=== PATIENT | female | born 1955 | race Caucasian/White ===

== ENCOUNTER → 2020-09-14 09:23 | Outpatient (CLI) | payer MEDICARE, OTHER, SELFPAY ==
--- NOTE | ~2020-09-14 | US_ITS ---
US renal BI 09/14/2020 09:42 Procedure: Realtime transabdominal ultrasound of the kidneys and bladder. Indication: Chronic kidney disease. Hypertension. Diabetes. Comparison: 11/21/2006 Findings: Renal echotexture is normal bilaterally without hydronephrosis, contour deforming mass or r enal calculus. The right kidney measures 9.9 cm and left kidney measures 11 cm. Bladder within juliette l limits. There is fatty infiltration of the liver. Impression: 1: Unremarkable renal ultrasound. No stones, masses or hydronephrosis. Reviewed, dictated and finalized at location A. L RESERVATIONIST Impression: 1: Unremarkable renal ultrasound. No stones, masses or hydronephrosis.
== END ==
PROVIDERS: PCP Family Medicine; Visit Provider Family Medicine
DX: N18.30 Chronic kidney disease, stage 3 unspecified (principal)
CPT/HCPCS: 76775

== ENCOUNTER 2020-09-25 11:26 | Outpatient (NON) | payer MEDICARE, BC, OTHER, SELFPAY ==
[2020-09-25 21:25] LABS: SARS-CoV-2 RNA PCR Positive
== END 2020-09-25 11:27 ==
PROVIDERS: PCP Family Medicine; Visit Provider Family Medicine
DX: U07.1 COVID-19 (principal)
CPT/HCPCS: C9803; U0003; U0005

== ENCOUNTER 2020-10-30 07:56 | Outpatient (CLI) | payer MEDICARE, BC, OTHER, SELFPAY ==
--- NOTE | ~2020-10-30 | MM_ITS ---
EXAMINATION: MM screening [facility] BI w dariana HISTORY: Screening mammogram TECHNIQUE: Craniocaudal and mediolateral oblique 3-D tomosynthesis images were obtained and synthetic 2-D images were generated. CAD analysis was submitted and interpreted. COMPARISON: 07/18/2017, 12/28/2008, 11/02/2007 BREAST PARENCHYMAL COMPOSITION: There are scattered areas of fibroglandular density. FINDINGS: There is no evidence of suspicious mass, calcification, or architectural distortion to sugg est malignancy in either breast. There has been no suspicious interval change. IMPRESSION: 1. No mammographic evidence of malignancy. 2. Recommend routine screening mammography in one year. BI-RADS Category 1: Negative Reviewed, dictated and finalized at location A. ER [employer]
--- NOTE | ~2020-10-30 | DEXA_ITS ---
Bone Density Report Name: Slime Blank Age: 65 Sex: Female Ethnicity: White Date of : 1955 Indication: osteopenia; Referring Provider: Rajat, [facility] Study: Bone densitometry was performed. Exam Date: October 30, 2020 Accession number: [id number] Bone Density: Region BMD T-score Z-score Classification AP Spine (L1-L4) 0.907 -1.3 0.6 Osteopenia Femoral Neck (Left) 0.741 -1.0 0.6 Normal Total Hip (Left) 0.980 0.3 1.6 Normal Total Hip Bilateral Avg 0.970 0.2 1.5 Normal Femoral Neck (Right) 0.779 -0.6 0.9 Normal Total Hip (Right) 0.958 0.1 1.4 Normal World Health Organization criteria for BMD impression classify patients as: Normal (T-score at or above -1.0), Osteopenia (T-score between -1.0 and -2.5), or Osteoporosis (T-score at or below -2.5). 10-year Fracture Risk(1): Major Osteoporotic Fracture 7.8% Hip Fracture 0.6% Reported Risk Factors: [place] (), Neck BMD=0.741, BMI=31.6 (1) FRAX(R) Version 3.08. Fracture probability calculated for an untreated patient. Fracture probability may be lower if the patient has received treatment. Previous Exams: Region Exam Age BMD T-score BMD Change BMD Change Date g/cm2 vs Baseline vs Previous AP Spine(L1-L4) 10/30/2020 65 0.907 -1.3 -0.061(-6.3%)# -0.013(-1.4%)# 10/23/2006 51 0.920 -1.2 -0.048(-5.0%)* -0.048(-5.0%)* 09/25/2004 48 0.968 -0.7 Total Hip(Left) 10/30/2020 65 0.980 0.3 0.025(2.7%)# -0.003(-0.3%) 07/18/2017 61 0.983 0.3 0.029(3.0%)# 0.020(2.1%)# 10/23/2006 51 0.963 0.2 0.009(0.9%) 0.009(0.9%) 09/25/2004 48 0.954 0.1 Total Hip(Right) 10/30/2020 65 0.958 0.1 -0.004(-0.4%)# -0.040(-4.0%)* 07/18/2017 61 0.998 0.5 0.036(3.7%)# 0.014(1.4%)# 10/23/2006 51 0.984 0.3 0.022(2.3%) 0.022(2.3%) 09/25/2004 48 0.962 0.2 *Denotes significance at 95% confidence level, LSC for AP Spine = 0.022 g/cm2, LSC for Total Hip = 0.027 g/cm2 Clinical Information Provided by Patient: Has used the following medications: Vitamin D Patient maximum height was 66 No regular weight bearing exercise Does not regularly consume dairy products Drinks caffeinated beverages Onset of menses at age 11 Number of children 1 Impression: The patient has low bone mass, based on the Total Spine T-score. The patient has an estimated ten-year risk of hip fracture of 0.6% and an estimated ten-year risk of major fr
== END 2020-10-30 07:57 | disposition home or self-care (01) ==
LOC: ANHIMG 08:01
PROVIDERS: PCP Family Medicine; Visit Provider Family Medicine
DX: Z12.31 Encounter for screening mammogram for malignant neoplasm of breast (principal); Z78.0 Asymptomatic menopausal state; M85.88 Other specified disorders of bone density and structure, other site
CPT/HCPCS: 77063; 77067; 77080

== ENCOUNTER → 2021-02-20 09:34 | Outpatient (CLI) | payer MEDICARE, BC, OTHER, SELFPAY ==
--- NOTE | ~2021-02-20 | XR_ITS ---
XR hand RT min 3V DATE: 02/20/2021 11:50 INDICATION: Bilateral hand pain TECHNIQUE: 3 views COMPARISON: None FINDINGS: There is polyarticular osteoarthritis, including first carpometacarpal, multiple metacarpop halangeal and interphalangeal joints, particularly distal interphalangeal joints of the second and mo st severely the third digits. No fracture or dislocation, periosteal reaction or bone destruction is detected. IMPRESSION: Polyarticular osteoarthritis Reviewed, dictated and finalized at location A.
--- NOTE | ~2021-02-20 | XR_ITS ---
XR hand LT min 3V DATE: 02/20/2021 11:49 INDICATION: Bilateral hand pain TECHNIQUE: 3 views COMPARISON: None FINDINGS: There is polyarticular osteoarthritis, including first carpometacarpal and multiple metacar pophalangeal joints and multiple interphalangeal joints, particularly the distal interphalangeal join ts, most pronounced at the second and third digits. No fracture, dislocation, periosteal reaction or bone destruction is detected. IMPRESSION: Polyarticular osteoarthritis Reviewed, dictated and finalized at location A.
--- NOTE | ~2021-02-20 | XR_ITS ---
XR lumbar spine min 4V DATE: 02/20/2021 11:49 INDICATION: Chronic low back pain TECHNIQUE: Standing AP, lateral, coned lateral lumbosacral and bilateral oblique views COMPARISON: None FINDINGS: There is diffuse osteopenia. No fracture or bone destruction, spondylolysis or spondylolisthesis. There is mild degenerative spurring of the lumbar vertebral bodies. Lumbar and lumbosacral interspace s are relatively well preserved. The sacroiliac joints are intact. Abdominal aortic and iliac arterial calcifications. IMPRESSION: Diffuse osteopenia Mild degenerative spurring Reviewed, dictated and finalized at location A.
--- NOTE | ~2021-02-20 | XR_ITS ---
XR hip BI 2V w AP pelvis DATE: 02/20/2021 11:49 INDICATION: Bilateral hip pain TECHNIQUE: AP pelvis. AP and lateral views of each hip COMPARISON: 09/15/2013 bilateral hips FINDINGS: Mild bilateral hip osteoarthritis. No fracture, dislocation, avascular necrosis or bone destruction of either hip is detected. No pelvic fracture or bone destruction. The pubic symphysis and sacroiliac joints are intact. IMPRESSION: Mild bilateral hip osteoarthritis Reviewed, dictated and finalized at location A.
--- NOTE | ~2021-02-20 | XR_ITS ---
XR knee RT 3V, XR knee LT 3V 02/20/2021 11:49 Indication: Bilateral knee pain Procedure: 3 views of each knee Comparison: Comparison to multiple prior studies sequentially, with oldest reviewed study dated 04/2014. Findings: There is mild bilateral patellofemoral compartment osteoarthritis. No fracture, subluxation or dislocation. No joint effusion. No foreign bodies. Impression: 1: Mild bilateral patellofemoral compartment osteoarthritis. Reviewed, dictated and finalized at location A. Impression: 1: Mild bilateral patellofemoral compartment osteoarthritis. Impression: 1: Mild bilateral patellofemoral compartment osteoarthritis.
== END ==
PROVIDERS: PCP Family Medicine; Visit Provider Family Medicine
DX: M18.0 Bilateral primary osteoarthritis of first carpometacarpal joints (principal); M19.042 Primary osteoarthritis, left hand; M19.041 Primary osteoarthritis, right hand; M16.0 Bilateral primary osteoarthritis of hip; M85.88 Other specified disorders of bone density and structure, other site
CPT/HCPCS: 72110; 73130; 73521; 73562

== ENCOUNTER → 2022-05-09 15:14 | Outpatient (CLI) | payer MEDICARE, BC, OTHER, SELFPAY ==
--- NOTE | ~2022-05-09 | XR_ITS ---
XR cervical spine 4-5V DATE: 05/09/2022 15:34 INDICATION: Neck pain TECHNIQUE: AP, open-mouth, lateral and swimmer views COMPARISON: None FINDINGS: There is straightening of the cervical spinal which may be due to muscle spasm. C1 and C2 are normally aligned and the odontoid process is intact. There is minimal anterolisthesis at C3-4 and C4-5. There is severe degenerative disc disease as well as anterior posterior spurring at C5-6. There is mild degenerative disease and mild anterior posterior spurring at C6-7. There is degenerative change at the cervical apophyseal and C5-6 uncovertebral joints. No fracture or dislocation or locked facet or prevertebral soft tissue swelling is detected. IMPRESSION: Straightening of the cervical spine, which may be due to muscle spasm Severe degenerative disc disease at C5-6, with uncovertebral joint spurring Mild to moderate degenerative disc disease at C6-7 Minimal anterolisthesis at C3-4, C4-5 Reviewed, dictated and finalized at location B. IMPRESSION: Straightening of the cervical spine, which may be due to muscle spa sm Severe degenerative disc disease at C5-6, with uncovertebral joint spurring Mild to moderate degenerative disc disease at C6-7 Minimal anterolisthesis at C3-4, C4-5
== END ==
PROVIDERS: PCP Family Medicine; Visit Provider Family Medicine
DX: M50.323 Other cervical disc degeneration at C6-C7 level (principal)
CPT/HCPCS: 72050

== ENCOUNTER 2022-10-16 11:28 | Emergency (ER) | payer MEDICARE, BC, OTHER, SELFPAY ==
[2022-10-16 11:39] VITALS: BP 130/75; PULSE 86; RESP 18; TEMP 36.2; O2SAT 99
--- NOTE | 2022-10-16 12:00 | ED.URI ---
HPI - URI/Sore Throat General Chief Complaint: Upper Respiratory Infection Stated Complaint: cold symptoms Time Seen by Provider: 10/16/22 12:00 Source: patient and RN notes reviewed Mode of arrival: ambulatory Limitations: no limitations History of Present Illness HPI Narrative: 67 y/o female with hx DM and CAD presented for c/o cough, sinus congestion and drainage intermittently for 3 weeks. Reports cough is productive of yellow sputum. States symptoms will improve for a short period time and then return. She denies shortness of breath, wheezing, nausea, vomiting or diarrhea or fevers or chills. She is taking multiple [id number] medications without significant relief. MD elicited complaint: cough Related Data Home Medications Medication Instructions Recorded Confirmed allopurinol 100 mg tablet 100 mg PO DAILY 10/11/19 10/16/22 aspirin 81 mg tablet,delayed 81 mg PO DAILY 10/11/19 10/16/22 release (Adult Low Dose Aspirin) cetirizine 10 mg capsule 10 mg PO DAILY 10/11/19 10/16/22 ezetimibe 10 mg tablet (Zetia) 10 mg PO DAILY 10/11/19 10/16/22 spironolactone 100 mg tablet 100 mg PO DAILY 10/11/19 10/16/22 rosuvastatin 5 mg tablet (Crestor) 5 mg PO QPM 10/12/19 10/16/22 diclofenac sodium 25 mg 25 mg PO BID 04/19/20 10/16/22 tablet,delayed release losartan 25 mg tablet 12.5 mg PO DAILY 04/19/20 10/16/22 metoprolol tartrate 25 mg tablet 12.5 mg PO BID 10/08/21 10/16/22 icosapent ethyl 1 gram capsule 1 g PO BID 04/08/22 10/16/22 (Vascepa) Allergies Allergy/AdvReac Type Severity Reaction Status Date / Time lisinopril Allergy Cough Verified 10/16/22 11:58 Review of Systems Review of Systems: CONSTITUTIONAL: Denies malaise, chills, sweats, fever EYES: Denies visual changes, redness, or discharge ENT: Reports rhinorrhea, congestion, deniessinus pain, otalgia, sore throat CARDIOVASCULAR: Denies chest pain, palpitations, edema RESPIRATORY: Reports cough, post nasal drainage. Denies dyspnea GASTROINTESTINAL: Denies abdominal pain, nausea, vomiting, diarrhea SKIN: Denies rash or itching PMFSH Past Medical History Medical History Alopecia Arthropathy Body mass index (BMI) 35 or more (12/20/16) CAD (coronary artery disease) Chronic fatigue Dermatochalasis of left upper eyelid Dermatochalasis of right upper eyelid Ganglion cyst History of gastroesophageal reflux (GERD) Hypertension Mixed hyperlipidemia Peripheral neuropathy Type 2 diabetes mellitus with hyperglycemia Visual field defect Surgical History Surgical History Rotator cuff arthropathy of right shoulder Family History Family History Father Patient's father is Sibling Hypertension Family history of diabetes mellitus in first degree relative Other Cerebrovascular accident Diabetes mellitus Family history of alcoholism Family history of cardiovascular disease Family history of hearing loss Family history of lung cancer Family history of migraine headaches Family history of obesity Social History Social History Smoking packs per day: 1 Smoking cigarettes per day: 20.0 Years smoked: 25 Smoking pack-years: 25.00 Smoking status: Never smoker Alcohol intake: never Substance use: never Gender identity (if verbalized by the patient): Female Exam Narrative: GENERAL: Mildly Ill-appearing, nontoxic EYES: PERRLA, conjunctivae clear ENT: Mucous membranes moist. TM pearly ervin with dull light reflex bilaterally, clear effusion right TM; no tragal tenderness. Oropharynx erythematous without lesions or exudate NECK: Supple. No lymphadenopathy CHEST: Clear to auscultation, breath sounds equal. No wheezing, rhonchi, rales, or stridor. No respiratory distress, speaks in ful
== END 2022-10-16 12:13 | disposition home or self-care (01) ==
PROVIDERS: Emergency Provider Nurse Practitioner Family; PCP Family Medicine
DX: J06.9 Acute upper respiratory infection, unspecified (principal); I25.10 Atherosclerotic heart disease of native coronary artery without angina pectoris; I10 Essential (primary) hypertension; E78.2 Mixed hyperlipidemia; E11.9 Type 2 diabetes mellitus without complications; F17.210 Nicotine dependence, cigarettes, uncomplicated; Z79.82 Long term (current) use of aspirin
CPT/HCPCS: 99213; G0463

== ENCOUNTER → 2023-08-01 11:26 | Outpatient (CLI) | payer MEDICARE, BC, OTHER, SELFPAY ==
--- NOTE | ~2023-08-01 | MM_ITS ---
EXAMINATION: MM screening [place] BI w dariana HISTORY: Screening mammogram TECHNIQUE: Craniocaudal and mediolateral oblique 3-D tomosynthesis images were obtained and synthetic 2-D images were generated. CAD analysis was submitted and interpreted. COMPARISON: October 30, 2020, July 18, 2017 bilateral screening mammogram examinations BREAST PARENCHYMAL COMPOSITION: There are scattered areas of fibroglandular density. FINDINGS: There is no evidence of suspicious mass, calcification, or architectural distortion to sugg est malignancy in either breast. There has been no suspicious interval change. IMPRESSION: 1. No mammographic evidence of malignancy. 2. Recommend routine screening mammography in one year. BI-RADS Category 1: Negative Reviewed, dictated and finalized at location A. MOTIVE SERVICES MANAGER
== END ==
PROVIDERS: PCP Family Medicine; Visit Provider Family Medicine
DX: Z12.31 Encounter for screening mammogram for malignant neoplasm of breast (principal)
CPT/HCPCS: 77063; 77067

== ENCOUNTER 2024-01-28 10:19 | Outpatient (CLI) | payer MEDICARE, BC, OTHER, SELFPAY ==
--- NOTE | ~2024-01-28 | DEXA_ITS ---
Bone Density Report Name: W[place]ON BEACH Age: 68 Sex: Female Ethnicity: White Date of : 1955 Indication: postmenopausal; screening for osteoporosis; Referring Provider: KRYSTLE, [facility] Study: Bone densitometry was performed. Exam Date: January 28, 2024 Accession number: [id number] Bone Density: Region BMD T-score Z-score Classification AP Spine (L1-L4) 0.810 -2.2 -0.1 Osteopenia Femoral Neck (Left) 0.735 -1.0 0.7 Normal Total Hip (Left) 0.943 0.0 1.5 Normal Femoral Neck (Right) 0.739 -1.0 0.8 Normal Total Hip (Right) 0.916 -0.2 1.2 Normal Total Hip Mean 0.930 -0.1 1.4 Normal World Health Organization criteria for BMD impression classify patients as: Normal (T-score at or above -1.0), Osteopenia (T-score between -1.0 and -2.5), or Osteoporosis (T-score at or below -2.5). 10-year Fracture Risk(1): Major Osteoporotic Fracture 8.5% Hip Fracture 0.8% Reported Risk Factors: [place] (), Neck BMD=0.739, BMI=29.8 (1) FRAX(R) Version 3.08. Fracture probability calculated for an untreated patient. Fracture probability may be lower if the patient has received treatment. Clinical Information Provided by Patient: Patient maximum height was 67.0 Menopause Age: 51 No regular weight bearing exercise Drinks caffeinated beverages Onset of menses at age 11 Number of children 1 Impression: The patient has low bone mass, based on the Total Spine T-score. The patient has an estimated ten-year risk of hip fracture of 0.8% and an estimated ten-year risk of major fracture of 8.5%, based on the WHO FRAX algorithm. Discussion: BONE DENSITY IS LOW AT ONE OR MORE SKELETAL SITES. This patient's lowest T-score is low at one or more skeletal sites. It meets the World Health Organization's (WHO) criteria for ?low bone mass? (T-score between -1.0 and -2.5). The patient's 10-year risk of fracture as calculated by FRAX is less than the threshold where pharmacological therapy is recommended by the National Osteoporosis Foundation (NOF). However, all treatment decisions require clinical judgment and consideration of individual patient factors, including patient preferences, comorbidities, previous drug use, risk factors not captured in the FRAX model (e.g., frailty, falls, vitamin D deficiency, increased bone turnover, interval significant decline in bone density) and possible under or overestimation of fracture risk by FRAX. The patient should follow a healthful lifestyle (good nutrition with adequate calcium and vitamin D, and appropriate weight-bearing exercise). Follow-Up: Consider repeating this study in 2 to 3 years to reassess this patient's status, or sooner if there is some new clinical indication. Reported by: MATY on 01/28/2024 10:46:00 AM. Revie
== END 2024-01-28 10:20 ==
PROVIDERS: PCP Family Medicine; Visit Provider Family Medicine
DX: M85.89 Other specified disorders of bone density and structure, multiple sites (principal)
CPT/HCPCS: 77080

== ENCOUNTER 2024-03-10 08:31 | Outpatient (CLI) | payer MEDICARE, BC, OTHER, SELFPAY ==
--- NOTE | ~2024-03-10 | US_ITS ---
EXAMINATION: US aorta [facility] DATE: 03/10/2024 09:06 INDICATION: Abdominal aortic aneurysm screening. Former smoker. TECHNIQUE: Grayscale, color Doppler, and pulsed Doppler images of the aorta and common iliac arteries were obtained. COMPARISON: None. FINDINGS: The aorta is normal in caliber. The right common iliac artery is normal in caliber. The left common i liac artery is normal in caliber. IMPRESSION: 1. No abdominal aortic aneurysm. Reviewed, dictated and finalized at location A.
== END 2024-03-10 08:32 | disposition home or self-care (01) ==
LOC: ANHIMG 08:35
PROVIDERS: PCP Family Medicine; Visit Provider Internal Medicine Cardiovascular Disease
DX: Z87.891 Personal history of nicotine dependence (principal)
CPT/HCPCS: 76706